=== PATIENT | male | born 1965 | race Caucasian/White ===

== ENCOUNTER 2018-08-01 07:24 | Day surgery (SDC) | payer OTHER, SELFPAY ==
[2018-07-31 12:31] VITALS: BMI 36.1
[2018-08-01] MEDS ORDERED: Midazolam HCl 2 mg/2 ml Vial ONE (07:49)
[2018-08-01] MEDS ORDERED: Dexamethasone 4 mg/ml Vial ONE (07:49)
[2018-08-01] MEDS ORDERED: Fentanyl 100 MCG/2 ML VIAL ONE (07:49)
[2018-08-01] MEDS ORDERED: ceFAZolin Sodium 2 GM/100 ML BAG ONE (07:52)
[2018-08-01 08:09] LABS: #Basophils 0.1 thou/uL (0.0-0.2); #Eosinphils 0.2 thou/uL (0.0-0.7); #Lymphocytes 1.9 thou/uL (1.20-3.40); #Monocytes 0.6 thou/uL (0.11-0.59); #Neutrophils 7.7 thou/uL (1.40-6.50); %Basophils 0.6 % (0.0-1.0); %Eosinophils 1.5 % (0.0-10.0); %Lymphocytes 18.2 % (21.0-51.0); %Monocytes 5.4 % (0.0-10.0); %Neutrophils 74.3 % (42.0-75.0); Hemoglobin 14.2 g/dL (14.0-18.0); Mean Corpuscular HGB CONC 33.8 g/dL (32.0-36.0); Mean Corpuscular Hemoglobin 31.7 pg (27.0-31.0); Mean Corpuscular Volume 93.8 fL (78.0-98.0); Mean Platelet Volume 8.6 fL (7.4-10.4); Platelet Count 249 thou/uL (130-400); RBC Distribution Width 11.7 % (11.5-14.5); Red Blood Cell (RBC) Count 4.47 mill/uL (4.70-6.10); White Blood Cell (WBC) Count 10.4 thou/uL (4.8-10.8)
[2018-08-01 08:28] LABS: Anion Gap 16 mmol/L (10-20); BUN (Urea Nitrogen) 7 mg/dL (8.4-25.7); Calc. Creatinine Clearance 179 mL/min (70-130); Calcium 9.6 mg/dL (7.8-10.44); Carbon Dioxide 24 mmol/L (22-29); Chloride 105 mmol/L (98-107); Estimated GFR-MDRD Greater than 90; Glucose 123 mg/dL (70-105); Potassium 3.8 mmol/L (3.5-5.1); Sodium 141 mmol/L (136-145)
--- NOTE | 2018-08-01 12:12 | OP ---
DATE OF PROCEDURE: 08/01/2018 PREOPERATIVE DIAGNOSES: Left bicondylar intra-articular tibial plateau fracture and lateral meniscus tear. POSTOPERATIVE DIAGNOSES: Left bicondylar intra-articular tibial plateau fracture and lateral meniscus tear. PROCEDURES PERFORMED: Open reduction and internal fixation of left bicondylar tibial plateau fracture and lateral meniscus repair. CONTRACT ASSOCIATE: Oleg Jones PA-C. BLOOD LOSS: 100. SPECIMEN: None. DRAINS: None. COMPLICATION: None. IMPLANTS USED: Synthes 3.5 locking plate. DESCRIPTION OF PROCEDURE: After informed consent was obtained, the patient was taking to the operating room, where general anesthesia was induced. He received Ancef preoperatively. Left leg was prepped and draped in sterile fashion. After exsanguination, tourniquet was inflated to 300 mmHg. I made a long incision extending posterior laterally and proximally over the knee joint and tibia. I dissected the skin out of the tibia. The knee joint was inspected, there was some depression. I split the defect. Irrigation was performed. I elevated the articular surface and placed a 3.5 Synthes plate using compression clamps to close the defect. Cortical screw was placed first proximally to close the joint surface. The bone screws were placed distally to compress the fracture distally. I then placed locking screws proximally and bone screws distally with a good near anatomic reduction. I repaired the lateral meniscus using #1 Ethibond sutures. The tourniquet was released. Irrigation was performed. Hemostasis obtained. IT band was repaired with #2 Vicryl. Subcu tissue was closed with 2-0 Vicryl. Skin was closed with kathleen. Sterile dressing applied. Job ID: [id number]
[2018-08-01] MEDS ORDERED: Bupivacaine HCl 0.5%/Epinephrine 1:200,000/PF 30 ml Vial ONE (12:16)
[2018-08-01] MEDS ORDERED: Ketorolac Tromethamine 30 MG/ML VIAL ONE (12:25)
[2018-08-01] MEDS ORDERED: Lidocaine 1% PF 5 ML VIAL ONE (12:25)
[2018-08-01] MEDS ORDERED: PROPOFOL 200 MG/20 ML VIAL ONE (12:25)
[2018-08-01] MEDS ORDERED: Ondansetron PF 4 MG/2 ML Vial ONE (12:25)
--- NOTE | 2018-08-01 15:33 | RAD ---
LEFT KNEE 4 VIEW SERIES: Date: 08/01/18 INDICATION: Open reduction and internal fixation of left knee. FINDINGS: Side plate and screw fixation of proximal left tibial fracture is demonstrated by intraoperative, mag nified fluoroscopic imaging. Alignment is near anatomic. Detail is limited on the provided views. IMPRESSION: Side plate and screw fixation of proximal left tibial fracture with near anatomic alignment. POS: [facility]
--- NOTE | 2018-08-01 18:26 | EKG ---
Test Reason : PREOP Blood Pressure : / mmHG Vent. Rate : 092 BPM Atrial Rate : 092 BPM P-R Int : 138 ms QRS Dur : 092 ms QT Int : 360 ms P-R-T Axes : 028 003 030 degrees QTc Int : 445 ms Normal sinus rhythm Normal ECG No previous ECGs available Confirmed by DR. Mary Ellen CABRAL ([id number]) on 08/01/2018 6:25:33 PM Referred By: SANTI Confirmed By:DR. Mary Ellen CABRAL
== END 2018-08-01 15:10 | disposition home or self-care (01) ==
LOC: SDC 07:24
PROVIDERS: ATTEND Orthopaedic Surgery
PROC: 0QSH04Z Reposition Left Tibia with Internal Fixation Device, Open Approach (ICD-10-PCS; principal; 2018-08-01)
PROC: 0SQD0ZZ Repair Left Knee Joint, Open Approach (ICD-10-PCS; principal; 2018-08-01)
DX: S82.142A Displaced bicondylar fracture of left tibia, initial encounter for closed fracture (principal); S83.282A Other tear of lateral meniscus, current injury, left knee, initial encounter; Z79.1 Long term (current) use of non-steroidal anti-inflammatories (NSAID); Z79.51 Long term (current) use of inhaled steroids; Z91.011 Allergy to milk products; V44.5XXA Car driver injured in collision with heavy transport vehicle or bus in traffic accident, initial encounter
CPT/HCPCS: 76000; 80048; 85025; 93005; 93010; C1713; J0670; J0690; J1100; J1885; J2001; J2250; J2405; J2704; J3010; J3490